=== PATIENT | male | born 1955 | race Caucasian/White ===

== ENCOUNTER → 2019-07-05 08:32 | Outpatient (BNVA) | payer BC, SELFPAY | PROVIDERS: Family Provider Nurse Practitioner Family; PCP Nurse Practitioner Family; Visit Provider Urology | DX: Z12.5 Encounter for screening for malignant neoplasm of prostate (principal); N39.9 Disorder of urinary system, unspecified | CPT/HCPCS: 81001 ==

== ENCOUNTER → 2019-10-20 11:55 | Outpatient (BNVA) | payer BC, SELFPAY | PROVIDERS: Family Provider Nurse Practitioner Family; PCP Nurse Practitioner Family; Visit Provider Nurse Practitioner Family | DX: E78.5 Hyperlipidemia, unspecified (principal); I10 Essential (primary) hypertension | CPT/HCPCS: 80053; 80061; 85025 ==

== ENCOUNTER → 2020-03-14 09:45 | Outpatient (BNVA) | payer BC, SELFPAY | PROVIDERS: Family Provider Nurse Practitioner Family; PCP Nurse Practitioner Family; Visit Provider Urology | DX: R97.20 Elevated prostate specific antigen [PSA] (principal) | CPT/HCPCS: 84153 ==

== ENCOUNTER → 2020-05-08 11:36 | Outpatient (BNVA) | payer BC, SELFPAY | PROVIDERS: Family Provider Nurse Practitioner Family; PCP Nurse Practitioner Family; Visit Provider Nurse Practitioner Family | DX: J30.2 Other seasonal allergic rhinitis (principal); E78.5 Hyperlipidemia, unspecified; H61.23 Impacted cerumen, bilateral; M25.561 Pain in right knee; G89.29 Other chronic pain; I10 Essential (primary) hypertension; H93.13 Tinnitus, bilateral | CPT/HCPCS: 80053; 80061; 85025 ==

== ENCOUNTER → 2020-09-11 10:39 | Outpatient (BNVA) | payer BC, SELFPAY | PROVIDERS: Family Provider Nurse Practitioner Family; PCP Nurse Practitioner Family; Visit Provider Urology | DX: R97.20 Elevated prostate specific antigen [PSA] (principal); N39.9 Disorder of urinary system, unspecified | CPT/HCPCS: 81003; G0103 ==

== ENCOUNTER → 2020-10-30 11:09 | Outpatient (BNVA) | payer BC, SELFPAY | PROVIDERS: Family Provider Nurse Practitioner Family; PCP Nurse Practitioner Family; Visit Provider Nurse Practitioner Family | DX: E78.5 Hyperlipidemia, unspecified (principal); I10 Essential (primary) hypertension | CPT/HCPCS: 80053; 80061; 84443; 85025 ==

== ENCOUNTER → 2021-03-14 10:07 | Outpatient (BNVA) | payer BC, SELFPAY | PROVIDERS: Family Provider Nurse Practitioner Family; PCP Nurse Practitioner Family; Visit Provider Urology | DX: R97.20 Elevated prostate specific antigen [PSA] (principal) | CPT/HCPCS: 81003; 84153 ==

== ENCOUNTER → 2021-05-07 09:38 | Outpatient (BNVA) | payer MEDICARE, OTHER, SELFPAY | PROVIDERS: Family Provider Nurse Practitioner Family; PCP Nurse Practitioner Family; Visit Provider Nurse Practitioner Family | DX: E78.5 Hyperlipidemia, unspecified (principal); I10 Essential (primary) hypertension; M25.561 Pain in right knee; M25.562 Pain in left knee; R97.20 Elevated prostate specific antigen [PSA]; G89.29 Other chronic pain; J30.2 Other seasonal allergic rhinitis; M17.12 Unilateral primary osteoarthritis, left knee | CPT/HCPCS: 73562; 80053; 80061; 84443; 85025 ==

== ENCOUNTER → 2021-06-26 14:07 | Outpatient (BNVA) | payer MEDICARE, OTHER, SELFPAY | PROVIDERS: Family Provider Nurse Practitioner Family; PCP Nurse Practitioner Family; Referring Provider Nurse Practitioner Family; Visit Provider Orthopaedic Surgery | DX: M17.0 Bilateral primary osteoarthritis of knee (principal) | CPT/HCPCS: 73560; 73565 ==

== ENCOUNTER → 2021-09-11 11:09 | Outpatient (BNVA) | payer MEDICARE, OTHER, SELFPAY | PROVIDERS: Family Provider Nurse Practitioner Family; PCP Nurse Practitioner Family; Visit Provider Orthopaedic Surgery | DX: M17.0 Bilateral primary osteoarthritis of knee (principal) | CPT/HCPCS: 99213; 99214 ==

== ENCOUNTER → 2021-10-19 10:47 | Day surgery (SDC) | payer MEDICARE, OTHER, SELFPAY | PROVIDERS: PCP Nurse Practitioner Family; Visit Provider Orthopaedic Surgery | DX: Z01.818 Encounter for other preprocedural examination (principal) | CPT/HCPCS: 93005 ==

== ENCOUNTER 2021-10-29 08:49 | Observation (INO) | payer MEDICARE, OTHER, SELFPAY ==
[2021-10-19 10:28] VITALS: BMI 38.7
--- NOTE | 2021-10-19 10:41 | ECG_ITS ---
[facility] Test Date: 2021-10-19 Pat Name: Armaan Camacho Department: Room: Gender: Male Medical Psychotherapist: : 1955 Requested By: Naye Desai Order Number: [id number] Pipe MD: Brock Quiroz M.D. Measurements Intervals [place] Rate: 66 P: 34 SD: 185 QRS: 10 QRSD: 106 T: 44 QT: 369 QTc: 388 Interpretive Statements SINUS RHYTHM POSSIBLE INFERIOR MYOCARDIAL INFARCTION , PROBABLY OLD [30 ms Q WAVE IN II/aVF] No previous ECG available for comparison Electronically Signed On 10-20-2021 12:32:30 CDT by Brock Quiroz M.D. [email or web address]
[2021-10-19 11:02] LABS: Basophils # 0.1 10^3/uL (0.0-0.1); Basophils % 1.1 %; Eosinophils # 0.5 10^3/uL (0.0-0.8); Eosinophils % 9.7 %; Hematocrit 44.8 % (42.0-52.0); Hemoglobin 14.6 g/dL (11.7-16.6); Lymphocytes # 0.9 10^3/uL (0.8-4.8); Lymphocytes % 17.2 %; Mean Corpuscular HGB Conc 32.6 g/dL (30.0-36.0); Mean Corpuscular Hemoglobin 29.1 pg (28.0-34.0); Mean Corpuscular Volume 89.4 fl (80-94); Mean Platelet Volume 10.3 fL (7.4-10.4); Monocytes # 0.6 10^3/uL (0.2-0.9); Monocytes % 10.5 %; Neutrophils # 3.25 10^3/uL (1.8-7.7); Neutrophils % 60.9 %; Nucleated Red Blood Cells % 0 %; Platelet Count 231 10^3/cmm (130-400); Red Blood Count 5.01 10^6/uL (4.1-5.3); Red Cell Distribution Width 13.2 % (12.1-15.1); White Blood Count 5.3 10^3/uL (4.0-10.0)
--- NOTE | 2021-10-19 11:02 | P.ANESASSM_ITS ---
Pre-Anesthetic Assessment Height/Weight: Height 1.83 m Weight 129.727 kg Preop Diagnosis: Osteoarthritis left knee Operation Date: 10/29/21 07:00 Proposed Procedures p left total knee arthroplasty/ 22473/M17.0(Left) - Miguel Michelle MD Familial anesthetic complications: None Social No alcohol and No tobacco Exam alert, oriented x 3, clear to auscultation bilaterally and regular rate & rhythm Airway Mallampati: Class III Dentition: other (missing) Pulmonary None reported CV/HEM Hypertension None reported Hepatic None reported GI None reported Metabolic None reported Musc/skel None reported Neuropsych None reported Anesthetic Plan ASA status: 2 Anesthesia: Regional (specify below) (spinal + adductor) Risk of > 500 ml blood loss (7ml/kg in children): No Medications/Allergies Home Medications Medication Instructions Recorded Confirmed Last Taken Type ascorbic acid (vitamin C) 1,000 mg 1 gm PO DAILY tab 07/05/19 10/19/21 Unknown History tablet aspirin 325 mg tablet 325 mg PO DAILY 07/05/19 10/19/21 Unknown History lemon grass 1 tab PO QPM 07/05/19 10/19/21 Unknown History zinc knqojvq-bpncki-qle 1 cap PO QPM cap 07/05/19 10/19/21 Unknown History iwzewllw-qwkjeod-kkw afr 15 mg-2 mg-160 mg cap atenolol 50 mg tablet 50 mg PO QPM 10/19/21 10/19/21 Unknown History atorvastatin 80 mg tablet 80 mg PO QPM 10/19/21 10/19/21 Unknown History fexofenadine 180 mg tablet 180 mg PO QPM 10/19/21 10/19/21 Unknown History (Micheline Allergy) fluticasone propionate 50 2 spray INTRANASAL QPM 10/19/21 10/19/21 Unknown History mcg/actuation nasal spray,suspension (Flonase Allergy Relief) Allergies Allergy/AdvReac Type Severity Reaction Status Date / Time No Known Allergies Allergy Verified 09/11/21 11:12 [facility] Anesthesia Medical History Elevated PSA Surgical History History of tonsillectomy and adenoidectomy [place] teeth extracted Family History Father , AT AGE 65 [place] No problems noted. Mother , AT AGE 79 COPD No problems noted. 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
[2021-10-19 11:14] LABS: Anion Gap 14.7 (5-19); Blood Urea Nitrogen 17 mg/dL (8-23); Calcium 9.7 mg/dL (8.5-10.5); Carbon Dioxide 26 mmol/L (22-29); Chloride 104 mmol/L (98-107); Glucose 151 mg/dL (65-115); Osmolality Calculated 294 mOsm/kg (285-295); Potassium 4.7 mmol/L (3.5-5.1); Sodium 140 mmol/L (136-145)
[2021-10-29] VITALS (19 sets, daily range): BP systolic 95–162; BP diastolic 53–95; PULSE 54–78; RESP 5–22; TEMP 36.3–36.7; O2SAT 54–97
--- NOTE | 2021-10-29 06:05 | SUR.PREOP ---
0600 red area noted to mid back from tick bite over the weekend
[2021-10-29] MEDS: sodium chloride 0.9% 1,000 ML 30 ML IV (06:20)
[2021-10-29] MEDS: CELEcoxib 200 mg Capsule 400 MG PO (06:26)
[2021-10-29] MEDS: gabapentin 300 mg Capsule PO ×2 (06:27→17:23)
[2021-10-29] MEDS: acetaminophen 500 mg Tablet 1000 MG PO ×3 (06:27→21:33)
[2021-10-29] MEDS: oxyCODONE 20 mg ER (12 HR) Tablet PO (06:28)
--- NOTE | 2021-10-29 06:40 | P.ANESUD_ITS ---
Pre-Anesthetic Update Pre-Anesthetic Assessment: Date of Surgery/Procedure: 10/29/21 Preop Kayla gnosis: Osteoarthritis left knee Proposed Procedure: Operation Date: 10/29/21 07:00 Proposed Procedures p left total knee arthroplasty/ 84720/M17.0(Left) - Miguel Michelle MD Any changes to Pre-Anesthetic Assessment?: No Last Intake: Intake Last Liquid Date 10/28/21 Last Liquid Time 22:00 Last Solid Date 10/28/21 Last Solid Time 22:00 Vitals: Temperature 98.1 F 10/29/21 05:54 Temperature Source Temporal Artery S can 10/29/21 05:54 Pulse Rate 66 10/29/21 05:54 Respiratory Rate 16 10/29/21 06:28 Respiratory Effort 10/29/21 06:28 Respiratory Depth Normal 10/29/21 06:28 Respiratory Patter n 10/29/21 06:28 Blood Pressure 162/95 10/29/21 05:54 Blood Pressure Rosie n 117 10/29/21 05:54 Pulse Oximetry 95 10/29/21 06:28 Oxygen Delivery Me thod 10/29/21 05:54 Exam: Pre-Anes Outpt Exam: alert, oriented x 3, clear to auscultation bilaterally and regular rate & rhythm Cardiac Studies: No Data to Display
--- NOTE | 2021-10-29 06:41 | ANES.PREANE2 ---
Pre-Anesthetic Assessment Height/Weight: Height 1.83 m Weight 129.727 kg Temp Pulse Resp BP Pulse Ox 98.1 F 66 16 162/95 95 10/29/21 05:54 10/29/21 05:54 10/29/21 06:28 10/29/21 05:54 10/29/21 06:28 Preop Diagnosis: Osteoarthritis left knee Operation Date: 10/29/21 07:00 Proposed Procedures p left total knee arthroplasty/ 90824/M17.0(Left) - Miguel Michelle MD Last intake: Intake Last Liquid Date 10/28/21 Last Liquid Time 22:00 Last Solid Date 10/28/21 Last Solid Time 22:00 Medications/Allergies Home Medications Medication Instructions Recorded Confirmed Last Taken Type ascorbic acid (vitamin C) 1,000 mg 1 gm PO DAILY tab 07/05/19 10/29/21 10/28/21 History tablet aspirin 325 mg tablet 325 mg PO DAILY 07/05/19 10/29/21 10/27/21 History lemon grass 1 tab PO QPM 07/05/19 10/29/21 10/28/21 History zinc fxnfeex-kezmil-abx 1 cap PO QPM cap 07/05/19 10/29/21 10/28/21 History jmtjthux-eidccog-yxx afr 15 mg-2 mg-160 mg cap atenolol 50 mg tablet 50 mg PO QPM 10/19/21 10/29/21 10/28/21 22:00 History atorvastatin 80 mg tablet 80 mg PO QPM 10/19/21 10/29/21 10/28/21 History fexofenadine 180 mg tablet 180 mg PO QPM 10/19/21 10/29/21 10/28/21 History (Micheline Allergy) fluticasone propionate 50 2 spray INTRANASAL QPM 10/19/21 10/29/21 10/28/21 History mcg/actuation nasal spray,suspension (Flonase Allergy Relief) Allergies Allergy/AdvReac Type Severity Reaction Status Date / Time No Known Allergies Allergy Verified 10/29/21 06:02 Current Medications Generic Name Dose Route Start Last Admin Trade Name Freq PRN Reason Stop Dose Admin Sodium Chloride 1,000 mls @ 30 mls/hr 10/29/21 06:00 10/29/21 06:20 Sodium Chloride 0.9% IV 10/30/21 05:59 30 mls/hr .Q24H MAITE Administration PFSH Anesthesia Medical History Elevated PSA Surgical History History of tonsillectomy and adenoidectomy [place] teeth extracted Family History Father , AT AGE 65 [place] No problems noted. Mother , AT AGE 79 COPD No problems noted. 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
--- NOTE | 2021-10-29 07:06 | P.HP_ITS ---
Same Day Surgery H&P Indication for Procedure/HPI DATE OF PROCEDURE: October 29, 2021 CHIEF COMPLAINT/INDICATIONFOR SURGICAL PROCEDURE: Osteoarthritis left knee for total knee arthroplasty PREOP DIAGNOSIS: Osteoarthritis left knee PLANNED PROCEDURE: Operation Date: 10/29/21 07:00 Proposed Procedures p left total knee arthroplasty/ 58803/M17.0(Left) - Miguel Michelle MD Doug is a 66-year-old male with osteoarthritis of both knees more symptomatic on the left. He has failed anti-inflammatories Medrol Dosepak and steroid injec tions with persistent activity related pain. He is here today for a left total knee arthroplasty Medications/Allergies* Home Medications Medication Instructions Recorded Confirmed Type ascorbic acid (vitamin C) 1,000 mg 1 gm PO DAILY tab 07/05/19 10/29/21 History tablet aspirin 325 mg tablet 325 mg PO DAILY 07/05/19 10/29/21 History lemon grass 1 tab PO QPM 07/05/19 10/29/21 History zinc qrvgzfr-jlbwwg-jux 1 cap PO QPM cap 07/05/19 10/29/21 History oaxmwsms-kmcpunj-lmc afr 15 mg-2 mg-160 mg cap atenolol 50 mg tablet 50 mg PO QPM 10/19/21 10/29/21 History atorvastatin 80 mg tablet 80 mg PO QPM 10/19/21 10/29/21 History fexofenadine 180 mg tablet 180 mg PO QPM 10/19/21 10/29/21 History (Micheline Allergy) fluticasone propionate 50 2 spray INTRANASAL QPM 10/19/21 10/29/21 History mcg/actuation nasal spray,suspension (Flonase Allergy Relief) Allergies/Adverse Reactions Allergy/AdvReac Type Severity Reaction Status Date / Time No Known Allergies Allergy Verified 10/29/21 06:02 Current Medications: Generic Name Dose Route Start Last Admin Trade Name Freq PRN Reason Stop Dose Admin Sodium Chloride 1,000 mls @ 30 mls/hr 10/29/21 06:00 10/29/21 06:20 Sodium Chloride 0.9% IV 10/30/21 05:59 30 mls/hr .Q24H MAITE Administration Pertinent History/Comorbid Conditions* Medical History (Updated 06/26/21 @ 14:40 by Miguel Michelle MD) Elevated PSA Surgical History (Updated 10/20/19 @ 21:17 by HANNY Steven) History of tonsillectomy and adenoidectomy [place] teeth extracted Family History Father, AT AGE 65 [place] Mother, AT AGE 79 COPD Social History Smoking and tobacco status: never smoked Second hand smoke exposure: No Alcohol intake: never Adopted: No Caregiver/support person: Yes Lives independently: Yes Household members: spouse Marital status: Current occupational status: retired 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
--- NOTE | 2021-10-29 07:09 | ANES.PROC ---
Anesthesia Procedures Procedure/Date: 10/29/21 Nerve Block ^: Nerve Block 1: Main Anesthesia: spinal anesthesia block Time Out Performed: Yes Consent: requested by attending/covering physician, from patient, risks and benefits reviewed and patient agrees to proceed Nerve block location: adductor canal Anesthesia monitors applied: pulse oximetry, EKG, BP cuff and oxygen Nerve block position: supine Anesthetic Used: ropivicaine 0.5% Amount of anesthesia used (mL): 15 Ultrasound used to: recognize landmarks and visualize and ID femerol nerve Nerve Stimulator Used?: No Interscalene/Femoral BLK: 4 stimuplex 21 g needle used for position and inplane approach, visualize local anesthetic spread and no vascular puncture identified Injection: neg aspiration of heme Patient Tolerated Procedure: well Additional Comments: After time out sterile prep, using sterile technique, and using real time US guidance for target selection needle was inserted with real time visualization of needle entry and real time visualization of needle advancement toward intended target. Negative aspiration. LA injected incrementally with negative aspiration every 5 cc and real time US visualization of LA spread throughout procedure. Tolerated well. Image(s) saved.
[2021-10-29] MEDS: tranexamic acid 1,000 mg/10mL SDV 1000 MG IV (07:25)
[2021-10-29] MEDS: tranexamic acid 1,000 mg/10mL SDV 1000 MG XX (07:50)
[2021-10-29] MEDS: ketorolac 30 mg/mL INJ XX (07:52)
[2021-10-29] MEDS: tobramycin 40 mg/mL SDV 2mL 160 MG XX (07:52)
[2021-10-29] MEDS: EPINEPHrine 1 mg/mL INJ XX (07:52)
--- NOTE | 2021-10-29 08:53 | P.OP_ITS ---
Operative Report Date of procedure: October 29, 2021 Pre-op diagnosis: Preop Diagnosis Osteoarthritis left knee Post-op diagnosis: same Post-op diagnosis: Same Post-op findings: Same Procedure done: Right total knee arthroplasty Implants: [place] total knee arthroplasty components were used includin) Size 6triathalon cruciate retaining femoral component 2) Size 7 Tritanium tibial component 3) 35 mm /10 mm thickness Tritanium asymetric patella 4) Size 7/9 mm thickness CR tibial bearing insert Pathology: none sent Surgeon: Miguel Michelle Anesthesia: Nerve Block (Spinal, adductor canal block) Estimated blood loss: 200 Findings: Patient had eburnated bone over the medial femoral condyle medial tibial plateau patella and trochlea Condition: stable Disposition: PACU Procedure: The patient was taken to the operating room. Patient was given 1 g of tranexamic acid . The above anesthesia provided by the anesthesia service. A timeout was performed. The patient was prepped and draped in the usual fashion with the lower extremity exposed. A anterior incision was made, midline, from a point proximal to the patella to the distal tibial tubercle. The knee was entered through a medial parapatellar approach. The patella could be displaced laterally and the knee flexed. The patellar fat pad was resected to provide better visibility. Retractors were placed medially and laterally adjacent to the tibial plateau. The femoral canal was drilled in line with the longitudinal axis of the femur. Intramedullary femoral guide for used to make a distal femoral cut in 5 degrees of valgus, resecting 8 mm from the more prominent condyle. Next the extra medullary tibial guide was placed in alignment with the longitudinal axis of the tibia. The cutting guides were set to remove just over 9 mm from the high tibial plateau. The proximal tibia was then cut. The femoral measuring guide was then placed over the distal femur. Rotation was verified checking the relationship of the guide to the condyle and the trochlear groove. The femur was measured and cut for the desired femoral component. The desired tibial baseplate was then chosen. A trial reduction with the femur tibial baseplate and polyethylene was done, assuring that the knee was stable throughout full motion. Ligament balancing involved nothing more than a release of the deep medial collateral ligament.The tibia was prepared for the tibial baseplate. Patellar thickness was then measured. The patella was cut removing articular cartilage and prepared for appropriate size patellar button. surfaces were cleaned with a gentamicin solution. The femur tibia and patella were then press- fit into place. The posterior capsule and collateral ligaments were then injected with a solution of 100 mL of 0.2% ropivacaine, 1 mL of a 1:1000 epinephrine solution, 30 mg of Toradol, and 1 g of tranexamic acid. Final polyethylene component was then snapped into place into the tibia. The extensor retinaculum was closed with a running 1 Stratafix interrupted 1 Ethibond. The subcutaneous tissues were closed with 2-0 Vicryl and the skin was closed with a running 4-0 Stratafix. The wound was covered with a Dermabond Prineo dressing. It was covered with 4xrs and a compressive Tubigauze was applied. The patient was taken to recovery room in stable condition.
--- NOTE | 2021-10-29 08:53 | XR_ITS ---
WS: [id number] LEFT KNEE 2 VIEWS AP and cross table lateral imaging is submitted. HISTORY: Left Total knee arthroplasty. COMPARISON: 06/26/2021 Total knee replacement prosthetic devices are in good position and alignment. Normal position of the patella. Posterior patellar prosthetic device. Numerous postsurgical sutures are noted over the anter ior knee and there are normal postoperative changes in the soft tissues consistent with air, blood an d edema. No complications are evident. XR/XR knee LT 1-2V 25803 IMPRESSION: Satisfactory appearance of the recent LEFT knee arthroplasty.
--- NOTE | 2021-10-29 09:20 | SUR.PHASEI ---
0907 PT TO PACU 5 PT AWAKE ALERT TALKATIVE, WITH GOOD RESP NOTED IV TO LT FOREARM PATENT WITH NS 1000ML AT KVO RATE PER GRAVITY PT ID BAND TO RT WRIST PT ID'D WITH 2 IDENTIFIERS. LT KNEE DRESSING D/I STRONG DISTAL PULSE NOTED. FIRST ICE TO LT KNEE MONITOR SR WITH NO ECTOPY NOTED. SPINAL ANESTHESIA AND PT HAS NORMAL SENSATION TO T -9 AREA HOB AT 30 DEGREES
--- NOTE | 2021-10-29 09:45 | SUR.PHASEI ---
0940 PT AWAKE ALERT HOB AT 40 DEGREES, VSS MONITOR SR, DRESSING D/I.FIRST ICE IN PLACE, PT FAMILY UPDATED AND PT TO OB PER CART.
[2021-10-29] MEDS: aspirin 325 mg Tablet PO (10:16)
[2021-10-29] MEDS: oxyCODONE 5 mg IR Tab/Cap PO (11:08)
--- NOTE | 2021-10-29 11:15 | PC.NURSE ---
PT called LD floor to ask nurse to pre medicate patient prior to therapy. CARLIE RN
--- NOTE | 2021-10-29 11:24 | PC.NURSE ---
PT notified of patient taking PO pain medication at this time. CARLIE GEORGE
[2021-10-29] MEDS: ondansetron 2 mg/ML SDV 2 mL 4 MG IVP (12:00)
--- NOTE | 2021-10-29 12:16 | PC.NURSE ---
Patient up in chair for lunch. Patient voiced no needs at this time. CARLIE RN
--- NOTE | 2021-10-29 13:53 | ANE.PACU2 ---
Inpatient post-anesthesia follow up: Airway intact: Yes Vital signs: Temperature 97.6 F Pulse Rate 63 Respiratory Rate 16 Blood Pressure 119/72 Pulse Oximetry 95 Oxygen Delivery Me thod Room Air Oxygen Flow Rate 3 Fraction of Inspir ed Oxygen Hydration adequate: Yes Nausea and vomiting: No Pain level: 1 Mental status: Baseline
--- NOTE | 2021-10-29 14:23 | PC.NURSE ---
Patient back to bed with walker and standby assist. Lower level of bed positioning locked out by RN. No needs at this time. CARLIE RN
--- NOTE | 2021-10-29 15:00 | PC.NURSE ---
Patient educated on IS use. Patient verbalized understanding. AR RN
[2021-10-29] MEDS: ceFAZolin 2,000 MG in sodium chloride 0.9% (plus) 50 ML 100 MG IV ×2 (15:08→22:54)
--- NOTE | 2021-10-29 16:53 | PC.NURSE ---
Dr. Michelle contacted about patient having difficulty voiding. aware of patient up to bathroom and passing minimal urine. Orders received for bladder scan. CARLIE GEORGE
[2021-10-29] MEDS: fluticasone nasal spray 16gm Btl 2 SPRAY INTRANASAL (17:23)
[2021-10-29] MEDS: atorvastatin 40 mg Tablet 80 MG PO (17:23)
--- NOTE | 2021-10-29 17:30 | PC.NURSE ---
Dr. Michelle notified of bladder scan amount. No further orders at this time. CARLIE GEORGE
[2021-10-29] MEDS: atenolol 50 mg Tablet PO (18:02)
--- NOTE | 2021-10-29 19:00 | PC.NURSE ---
ice pack changed
[2021-10-29] MEDS: sodium chloride 0.9% 1,000 ML 100 ML IV (19:13)
--- NOTE | 2021-10-29 21:00 | PC.NURSE ---
ice pack changed
[2021-10-29] MEDS: CELEcoxib 200 mg Capsule PO (21:33)
--- NOTE | 2021-10-29 23:00 | PC.NURSE ---
ice pack changed
--- NOTE | 2021-10-30 02:00 | PC.NURSE ---
ice pack changed
--- NOTE | 2021-10-30 04:10 | PC.NURSE ---
ice pack changed
[2021-10-30 04:22] VITALS: BP 133/79; PULSE 62; RESP 14; TEMP 36.8; O2SAT 95
[2021-10-30 04:27] LABS: Hemoglobin 11.6 g/dL (11.7-16.6)
[2021-10-30] MEDS: acetaminophen 500 mg Tablet 1000 MG PO (05:59)
--- NOTE | 2021-10-30 06:00 | PC.NURSE ---
ice pack changed
[2021-10-30] MEDS: ceFAZolin 2,000 MG in sodium chloride 0.9% (plus) 50 ML 100 MG IV (06:30)
[2021-10-30] MEDS: CELEcoxib 200 mg Capsule PO (08:11)
[2021-10-30 08:12] VITALS: RESP 16
[2021-10-30] MEDS: oxyCODONE 5 mg IR Tab/Cap PO (08:12)
[2021-10-30] MEDS: gabapentin 300 mg Capsule PO (08:12)
[2021-10-30] MEDS: aspirin 325 mg Tablet PO (08:15)
--- NOTE | 2021-10-30 10:53 | P.DS_ITS ---
Discharge Providers Date of Admission: 10/29/21 08:49 Date of Discharge: October 30, 2021 Attending Provider at Admission: Miguel Michelle MD Attending Provider at Discharge: Miguel Michelle MD Primary Care Provider: HANNY Steven Diagnoses at Discharge Discharge Diagnosis (1) Osteoarthritis of left knee: Status: Resolved (2) Status post left knee replacement: Status: Acute Hospital Course Hospital Course The patient tolerated surgery well. They remained hemodynamically stable. They was begun on aspirin and foot pumps for DVT prophylaxis. The patient was mobilized with therapy beginning the day of surgery and by the first postoperative day independent with the walker. As the pain was adequately controlled and they were fully mobile they were discharged home. Physical Exam Narrative: On the day of discharge the knee incision was clean. They had no drainage. There is minimal swelling in the thigh and knee and the calf. No distal neurovascular deficits were noted Discharge Data Studies Completed and Pending Completed Studies During Hospitalization Category Date Time Status XR knee LT 1-2V 47576 Routine Exams 10/29/21 08:53 Completed Radiology Impressions Knee X-Ray 10/29/21 08:53 IMPRESSION: Satisfactory appearance of the recent LEFT knee arthroplasty. Laboratory Results WBC 5.3 10^3/uL (4.0-10.0) 10/19/21 10:48 RBC 5.01 10^6/uL (4.1-5.3) 10/19/21 10:48 Hgb 11.6 g/dL (11.7-16.6) L 10/30/21 04:02 Hct 44.8 % (42.0-52.0) 10/19/21 10:48 MCV 89.4 fl (80-94) 10/19/21 10:48 MCH 29.1 pg (28.0-34.0) 10/19/21 10:48 MCHC 32.6 g/dL (30.0-36.0) 10/19/21 10:48 RDW 13.2 % (12.1-15.1) 10/19/21 10:48 Plt Count 231 10^3/cmm (130-400) 10/19/21 10:48 MPV 10.3 fL (7.4-10.4) 10/19/21 10:48 Neut % (Auto) 60.9 % 10/19/21 10:48 Lymph % (Auto) 17.2 % 10/19/21 10:48 Divide % (Auto) 10.5 % 10/19/21 10:48 Eos % (Auto) 9.7 % 10/19/21 10:48 Baso % (Auto) 1.1 % 10/19/21 10:48 Neut # (Auto) 3.25 10^3/uL (1.8-7.7) 10/19/21 10:48 Lymph # (Auto) 0.9 10^3/uL (0.8-4.8) 10/19/21 10:48 Divide # (Auto) 0.6 10^3/uL (0.2-0.9) 10/19/21 10:48 Eos # (Auto) 0.5 10^3/uL (0.0-0.8) 10/19/21 10:48 Baso # (Auto) 0.1 10^3/uL (0.0-0.1) 10/19/21 10:48 Nucleated RBC % (auto) 0 % 10/19/21 10:48 Nucleated RBCs # 0.0 /100WBC 10/19/21 10:48 Sodium 140 mmol/L (136-145) 10/19/21 10:48 Potassium 4.7 mmol/L (3.5-5.1) 10/19/21 10:48 Chloride 104 mmol/L (98-107) 10/19/21 10:48 Carbon Dioxide 26 mmol/L (22-29) 10/19/21 10:48 Anion Gap 14.7 (5-19) 10/19/21 10:48 BUN 17 mg/dL (8-23) 10/19/21 10:48 Creatinine 0.8 mg/dL (0.7-1.2) 10/19/21 10:48 GFR Calculation 97.0 mL/min (90-130) 10/19/21 10:48 Glucose 151 mg/dL (65-115) H 10/19/21 10:48 Calculated Osmolality 294 mOsm/kg (285-295) 10/19/21 10:48 Calcium 9.7 mg/dL (8.5-10.5) 10/19/21 10:48 Vitals Last Vital Signs Temp 98.3 F 10/30/21 04:22 Pulse 62 10/30/21 04:22 Resp 16 10/30/21 08:12 BP 133/79 10/30/21 04:22 Pulse Ox 95 10/30/21 04:22 Discharge Plan Discharge Patient Disposition: Home Condition: Stable Prescriptions: New celecoxib 200 mg Capsule 200 mg PO Q12H 14 Days Qty: 28 0RF acetaminophen 500 mg Tablet 1,000 mg PO Q8H 14 Days Qty: 84 0RF gabapentin 300 mg Capsule 300 mg PO BID 7 Days Qty: 14 0RF oxycodone 5 mg Tablet 5 mg PO Q4H PRN (Reason: Moderate Pain) 7 Days Qty: 30 0RF Continued lemon grass 1 tab PO QPM 0RF zinc yso-xwyylw-yfr palm-gnsg 15-2-160 mg capsule 1 cap PO QPM 0RF ascorbic acid (vitamin C) 1,000 mg tablet 1 gm PO DAILY 0RF aspirin 325 mg tablet 325 mg PO DAILY 0RF atorvastatin 80 mg tablet 80 mg PO QPM 0RF fexofenadine [Micheline Allergy] 180 mg tablet 180 mg PO QPM 0RF fluticasone propionate [Flonase Allergy Relief] 50 mcg/actuation spray,suspension 2 spray INTRANASAL QPM 0RF Rx Instructions: administer into each nostril atenolol 50 mg tablet 50 mg PO QPM 0RF Discharge Orders: Discharge Order (Routine); Ordered 10/30/21 Ordered By: Miguel Michelle Referrals: [facility] ([facility]) [Outside] Dez Kumar FNP [Physician Thin Film Technician] - 11/02/21 8:30 am Discharge Diet: Advance as tolerated Discharge Activity: Limit activity as instructed Patient Instructions: Gabapentin (By mouth), Oxycodone, Rapid Release (By mouth) (ETH-Oxydose, Oxy IR,..., Celecoxib (By mouth), Precautions after Total Joint Replacement Surgery (GEN), Knee Replacement (GEN), Opioid Safety, Post Anesthesia Care Activity Restrictions/Additional Instructions: Okay to shower Keep Tubigauze sleeve in place for swelling. Okay to remove for hygiene. Apply FirstIce up to 20 min/hr for pain and swelling Take Celebrex twice a day for the next 15 days for pain , discontinue other anti-inflammatories Take Neurontin twice a day for 7 days. Take Tylenol 500mg (2 tabs) as needed 3 times a day for mild pain take oxycodone for breakthrough pain. Exercises per physical therapy. May weight-bear as tolerated on total knee arthroplasty IF HAVE ANY PROBLEMS OR QUESTIONS CALL [facility] AND ASK TO HAVE DR. ELISHA PLASCENCIA. Discharge Attestations Time Spent in Discharge Care*: other Quality Metrics Clinical Quality Measures [ No reported AMI, CVA or VTE this stay] Coding Level of Care Code Acute Chg FW CA note Diagnoses Osteoarthritis of left knee M17.12 Status post left knee replacement Z96.652
[2021-10-30 11:38] VITALS: BP 131/74; PULSE 67; RESP 16; TEMP 36.9; O2SAT 95
== END 2021-10-30 12:00 | disposition home or self-care (01) ==
LOC: OBGYN 08:49
PROVIDERS: Anesthesiology; Admitting Provider Orthopaedic Surgery; PCP Nurse Practitioner Family; Visit Provider Orthopaedic Surgery
PROC: (CPT 27447; principal; 2021-10-29 07:00)
DX: M17.12 Unilateral primary osteoarthritis, left knee (principal); I10 Essential (primary) hypertension; Z79.82 Long term (current) use of aspirin
CPT/HCPCS: 27447; 36415; 73560; 80048; 85018; 85025; 97110; 97161; 97165; 97530; C1776; G0378; J0171; J0690; J1885; J2370; J2405; J2704; J2795; J3260; J7030

== ENCOUNTER → 2021-10-31 12:28 | Outpatient (BNVA) | payer MEDICARE, OTHER, SELFPAY | PROVIDERS: PCP Nurse Practitioner Family; Visit Provider Family Medicine | DX: R35.0 Frequency of micturition (principal) | CPT/HCPCS: 81000 ==

== ENCOUNTER → 2021-11-02 08:20 | Outpatient (BNVA) | payer MEDICARE, OTHER, SELFPAY | PROVIDERS: PCP Nurse Practitioner Family; Visit Provider Nurse Practitioner Family | DX: Z96.652 Presence of left artificial knee joint (principal) | CPT/HCPCS: 99024 ==

== ENCOUNTER 2021-11-13 09:00 | Outpatient (RCR) | payer MEDICARE, OTHER, SELFPAY | END 2021-11-18 23:59 | disposition home or self-care (01) | LOC: TPT 09:00 | PROVIDERS: PCP Nurse Practitioner Family; Referring Provider Orthopaedic Surgery; Visit Provider Orthopaedic Surgery | DX: Z47.1 Aftercare following joint replacement surgery (principal); Z96.652 Presence of left artificial knee joint | CPT/HCPCS: 97032; 97110; 97162 ==

== ENCOUNTER 2021-11-19 06:00 | Outpatient (RCR) | payer MEDICARE, OTHER, SELFPAY | END 2021-12-19 23:59 | disposition home or self-care (01) | LOC: TPT 06:00 | PROVIDERS: PCP Nurse Practitioner Family; Referring Provider Orthopaedic Surgery; Visit Provider Orthopaedic Surgery | DX: Z96.652 Presence of left artificial knee joint (principal) | CPT/HCPCS: 97032; 97110; 97140 ==

== ENCOUNTER → 2021-11-29 09:05 | Outpatient (BNVA) | payer MEDICARE, OTHER, SELFPAY | PROVIDERS: PCP Nurse Practitioner Family; Visit Provider Nurse Practitioner Family | DX: Z96.652 Presence of left artificial knee joint (principal) | CPT/HCPCS: 73560; 73565; 99024 ==

== ENCOUNTER 2021-12-20 06:00 | Outpatient (RCR) | payer MEDICARE, OTHER, SELFPAY | END 2022-01-18 23:59 | disposition home or self-care (01) | LOC: TPT 06:00 | PROVIDERS: PCP Nurse Practitioner Family; Visit Provider Orthopaedic Surgery | DX: Z96.652 Presence of left artificial knee joint (principal) | CPT/HCPCS: 97110; 97140 ==

== ENCOUNTER 2022-01-03 15:35 | Outpatient (CLI) | payer MEDICARE, OTHER, SELFPAY | END 2022-01-03 15:36 | disposition home or self-care (01) | LOC: LAB 15:40 | PROVIDERS: PCP Nurse Practitioner Family; Visit Provider Urology | DX: R97.20 Elevated prostate specific antigen [PSA] (principal) | CPT/HCPCS: 36415; 84153 ==

== ENCOUNTER → 2022-01-07 14:59 | Outpatient (BNVA) | payer MEDICARE, OTHER, SELFPAY | PROVIDERS: PCP Nurse Practitioner Family; Visit Provider Urology | DX: R97.20 Elevated prostate specific antigen [PSA] (principal); R33.8 Other retention of urine | CPT/HCPCS: 51798; 99213 ==

== ENCOUNTER → 2022-01-17 12:42 | Outpatient (BNVA) | payer MEDICARE, OTHER, SELFPAY | PROVIDERS: PCP Nurse Practitioner Family; Visit Provider Urology | DX: R97.20 Elevated prostate specific antigen [PSA] (principal); R33.8 Other retention of urine | CPT/HCPCS: 81003 ==

== ENCOUNTER → 2022-03-06 10:37 | Outpatient (BNVA) | payer MEDICARE, OTHER, SELFPAY | PROVIDERS: PCP Nurse Practitioner Family; Visit Provider Orthopaedic Surgery | DX: Z96.652 Presence of left artificial knee joint (principal) | CPT/HCPCS: 99212 ==

== ENCOUNTER → 2022-04-19 10:02 | Outpatient (BNVA) | payer MEDICARE, OTHER, SELFPAY | PROVIDERS: PCP Nurse Practitioner Family; Visit Provider Nurse Practitioner Family | DX: I10 Essential (primary) hypertension (principal); R73.9 Hyperglycemia, unspecified | CPT/HCPCS: 80053; 80061; 83036; 83735; 84443; 85025 ==

== ENCOUNTER → 2022-07-08 11:14 | Outpatient (BNVA) | payer MEDICARE, OTHER, SELFPAY | PROVIDERS: PCP Nurse Practitioner Family; Visit Provider Urology | DX: R97.20 Elevated prostate specific antigen [PSA] (principal) | CPT/HCPCS: 84153 ==

== ENCOUNTER → 2022-07-11 08:31 | Outpatient (BNVA) | payer MEDICARE, OTHER, SELFPAY | PROVIDERS: PCP Nurse Practitioner Family; Visit Provider Urology | DX: R97.20 Elevated prostate specific antigen [PSA] (principal); R33.8 Other retention of urine | CPT/HCPCS: 51798; 81003; 99213 ==

== ENCOUNTER → 2022-09-23 09:25 | Outpatient (BNVA) | payer MEDICARE, OTHER, SELFPAY | PROVIDERS: PCP Nurse Practitioner Family; Visit Provider Nurse Practitioner Family | DX: E78.5 Hyperlipidemia, unspecified (principal); I10 Essential (primary) hypertension; R73.09 Other abnormal glucose | CPT/HCPCS: 80053; 80061; 83036; 84443; 85025 ==

== ENCOUNTER → 2023-04-16 08:59 | Outpatient (BNVA) | payer MEDICARE, OTHER, SELFPAY | PROVIDERS: PCP Nurse Practitioner Family; Visit Provider Nurse Practitioner Family | DX: I10 Essential (primary) hypertension (principal); E78.5 Hyperlipidemia, unspecified; E11.9 Type 2 diabetes mellitus without complications; R97.20 Elevated prostate specific antigen [PSA] | CPT/HCPCS: 80053; 80061; 83036; 84153; 85025 ==

== ENCOUNTER → 2023-06-10 11:05 | Outpatient (BNVA) | payer MEDICARE, OTHER, SELFPAY | PROVIDERS: PCP Nurse Practitioner Family; Visit Provider Student in an Organized Health Care Education/Training Program | DX: M17.11 Unilateral primary osteoarthritis, right knee | CPT/HCPCS: 73560; 73565; 99214 ==

== ENCOUNTER 2023-07-08 13:31 | Outpatient (CLI) | payer MEDICARE, OTHER, SELFPAY ==
--- NOTE | 2023-07-08 14:00 | CT_ITS ---
WS: [id number] CT RIGHT KNEE, NONCONTRAST LUCILA TECHNIQUE: Noncontrast CT of the RIGHT knee to include the RIGHT hip and ankle. CLINICAL INFORMATION: M17.11 - Unilateral primary osteoarthritis, right knee COMPARISON: None. DLP: 1001.[address] scans at [facility] use at least one of these dose optimization techniques: automated e xposure control; mA and/or kV adjustment per patient size (includes targeted exams where dose is matc hed to clinical indication); or iterative reconstruction. FINDINGS: Advanced tricompartment arthritis RIGHT knee with joint space narrowing worse in the medial joint com partment. Moderate suprapatellar effusion. Hypertrophic patella. Hypertrophic changes along the joint line. Vascular calcification. Enlarged prostate measuring 6.5 cm. Recommend correlation PSA. IMPRESSION: Images obtained for preoperative purposes.
== END 2023-07-08 13:32 | disposition home or self-care (01) ==
LOC: RAD 13:32
PROVIDERS: PCP Nurse Practitioner Family; Visit Provider Student in an Organized Health Care Education/Training Program
DX: M17.11 Unilateral primary osteoarthritis, right knee (principal)
CPT/HCPCS: 73700

== ENCOUNTER → 2023-07-10 08:39 | Outpatient (BNVA) | payer MEDICARE, OTHER, SELFPAY | PROVIDERS: PCP Nurse Practitioner Family; Visit Provider Family Medicine | DX: Z01.818 Encounter for other preprocedural examination (principal) | CPT/HCPCS: 80053; 81003; 85025 ==

== ENCOUNTER 2023-07-21 16:15 | Observation (INO) | payer MEDICARE, OTHER, SELFPAY ==
[2023-07-21] VITALS (10 sets, daily range): BP systolic 129–166; BP diastolic 64–98; PULSE 71–85; RESP 14–18; TEMP 36.4–37; O2SAT 94–96; BMI 38.4
[2023-07-21] MEDS: scopolamine 1.5 Patch 1 PATCH TRANSDERMA (12:37)
[2023-07-21] MEDS: acetaminophen 1,000 MG/100 ML PIGGYBACK 400 MG IV ×2 (12:44→17:49)
[2023-07-21] MEDS: lactated ringers 500 ML IV (12:45)
[2023-07-21] MEDS: ketorolac 30 mg/mL INJ IVP (12:45)
[2023-07-21 13:10] LABS: Basophils # 0.1 10^3/uL (0.0-0.1); Eosinophils # 0.5 10^3/uL (0.0-0.8); Eosinophils % 8.8 %; Hematocrit 43.8 % (37-53); Lymphocytes % 16.8 %; Mean Corpuscular HGB Conc 32.9 g/dL (30-55); Mean Corpuscular Hemoglobin 29.3 pg (27-33); Mean Corpuscular Volume 89.2 fl (82-101); Mean Platelet Volume 10.5 fL (7.4-10.4); Monocytes # 0.8 10^3/uL (0.2-0.9); Monocytes % 12.8 %; Neutrophils # 3.63 10^3/uL (1.8-7.7); Neutrophils % 60.4 %; Nucleated Red Blood Cells % 0 %; Platelet Count 221 10^3/cmm (157-399); Red Blood Count 4.91 10^6/uL (3.85-5.65); Red Cell Distribution Width 13.4 % (12.1-15.1); White Blood Count 6.01 10^3/uL (3.29-11.43)
--- NOTE | 2023-07-21 13:12 | ANES.PREANE2 ---
Pre-Anesthetic Assessment Height/Weight: Height 1.88 m Weight 135.624 kg Temp Pulse Resp BP Pulse Ox O2 Del Method 98.6 F 71 18 160/95 96 Room Air 07/21/23 12:27 07/21/23 12:27 07/21/23 12:27 07/21/23 12:27 07/21/23 12:27 07/21/23 12:27 Operation Date: 07/21/23 14:00 Proposed Procedures p Jesus Robot Total Knee Arthroplasty(Right) - Dejan Ramires DO Familial anesthetic complications: NOne Was Beta Irma taken within 24 hours: N/A Was Clonidine taken within 24 hours: N/A Last intake: Intake Last Liquid Date 07/21/23 Last Liquid Time 00:30 Last Solid Date 07/20/23 Last Solid Time 21:00 Social No alcohol and No tobacco Exam alert, oriented x 3, clear to auscultation bilaterally and regular rate & rhythm Airway Mallampati: Class IV Dentition: full CV/HEM Hypertension Metabolic Hyperlipidemia and Morbid Obesity Anesthetic Plan ASA status: 2 Anesthesia: Regional (specify below) Risk of > 500 ml blood loss (7ml/kg in children): No Medications/Allergies Home Medications Medication Instructions Recorded Confirmed Last Taken Type ascorbic acid (vitamin C) 1,000 mg 1 gm PO DAILY 07/05/19 07/18/23 07/19/23 History tablet aspirin 325 mg tablet 325 mg PO DAILY 07/05/19 07/18/23 07/16/23 History lemon grass 1 tab PO QPM 07/05/19 07/18/23 07/19/23 History zinc rkfvfnq-llklxf-vmd 1 cap PO QPM 07/05/19 07/18/23 07/19/23 History hohwqlcv-tfivhtg-sgy afr 15 mg-2 mg-160 mg cap fexofenadine 180 mg tablet 180 mg PO QPM 10/19/21 07/18/23 07/20/23 History (Micheline Allergy) fluticasone propionate 50 2 spray intranasal QPM 10/19/21 07/18/23 07/20/23 History mcg/actuation nasal spray,suspension (Flonase Allergy Relief) metoprolol succinate 50 mg 50 mg PO DAILY #90 tabs 04/18/23 07/18/23 07/20/23 21:00 Rx tablet,extended release 24 hr rosuvastatin 40 mg tablet 40 mg PO DAILY #90 tabs 04/18/23 07/18/23 07/20/23 Rx Allergies Allergy/AdvReac Type Severity Reaction Status Date / Time No Known Allergies Allergy Verified 07/10/23 08:43 [facility], [facility] Anesthesia Medical History Elevated PSA Surgical History S/P knee replacement left History of tonsillectomy and adenoidectomy [place] teeth extracted Family History Father , AT AGE 65 [place] No problems noted. Mother , AT AGE 79 COPD No problems noted. 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
[2023-07-21 13:26] LABS: Blood Urea Nitrogen 17 mg/dL (8-23); Calcium 9.6 mg/dL (8.5-10.5); Carbon Dioxide 26 mmol/L (22-29); Chloride 104 mmol/L (98-107); Creatinine Clr Calc Pharmacy 131.2601; Glomerular Filtration Rate 96.4 mL/min (90-130); Glucose 93 mg/dL (65-115); Osmolality Calculated 293 mOsm/kg (285-295); Sodium 141 mmol/L (136-145)
--- NOTE | 2023-07-21 13:39 | P.HP_ITS ---
Same Day Surgery H&P Indication for Procedure/HPI DATE OF PROCEDURE: July 21, 2023 CHIEF COMPLAINT/INDICATIONFOR SURGICAL PROCEDURE: Right knee degenerative joint disease PREOP DIAGNOSIS: Right knee degenerative joint disease PLANNED PROCEDURE: Operation Date: 07/21/23 14:00 Proposed Procedures p Jesus Robot Total Knee Arthroplasty(Right) - Dejan Ramires DO Medications/Allergies* Home Medications Medication Instructions Recorded Confirmed Type ascorbic acid (vitamin C) 1,000 mg 1 gm PO DAILY 07/05/19 07/18/23 History tablet aspirin 325 mg tablet 325 mg PO DAILY 07/05/19 07/18/23 History lemon grass 1 tab PO QPM 07/05/19 07/18/23 History zinc dqwhlsd-wquqfy-bsv 1 cap PO QPM 07/05/19 07/18/23 History xgngeida-uzewtnb-lxn afr 15 mg-2 mg-160 mg cap fexofenadine 180 mg tablet 180 mg PO QPM 10/19/21 07/18/23 History (Micheline Allergy) fluticasone propionate 50 2 spray intranasal QPM 10/19/21 07/18/23 History mcg/actuation nasal spray,suspension (Flonase Allergy Relief) Allergies/Adverse Reactions Allergy/AdvReac Type Severity Reaction Status Date / Time No Known Allergies Allergy Verified 07/10/23 08:43 Pertinent History/Comorbid Conditions* Medical History (Updated 10/01/22 @ 08:53 by HANNY Steven) Elevated PSA Surgical History (Updated 10/01/22 @ 09:21 by HANNY Steven) S/P knee replacement left History of tonsillectomy and adenoidectomy [place] teeth extracted Family History Father, AT AGE 65 [place] Mother, AT AGE 79 COPD Social History Smoking and tobacco/nicotine status: never used tobacco/nicotine Second hand smoke exposure: No Alcohol intake: never Substance/Drug Use: never Adopted: No Caregiver/support person: Yes Lives independently: Yes Household members: spouse Marital status: Current occupational status: retired 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 Current gender identity: Male Special olegario needs: No Agree to transfusion: Yes Pertinent Exam Findings alert, oriented x 3, operative site marked and procedure specific exam findings Please refer to last office visit on 06/10/2023 for detailed orthopedic examination: Right Knee Exam: ROM 0 to greater than 115degrees Patellar crepitus with ROM Medial joint line tenderness to palpation Lateral joint line tenderness to palpation Mild joint effusion Negative Dotty's but pain noted Negative Jovanny's 10 degrees of Varus malalignment, correctable on exam Stable Varus and Valgus stress Gross motor sensory intact Recommendations Surgery/Procedure today Other Plans: Patient understands the ins and outs of procedure the risk benefits complication alternatives of surgery and through shared decision-making elects proceed with surgical intervention of a right total knee arthroplasty Jesus robotic assisted. Patient is clear the preoperative clearance process and all questions answered at this time. Coding Level of Care Code Acute Code for [facility] [place]
[2023-07-21 13:55] LABS: Anion Gap 15.5 (5-19); Potassium 4.5 mmol/L (3.5-5.1)
[2023-07-21] MEDS: ceFAZolin 2,000 MG in sodium chloride 0.9% (plus) 50 ML 100 MG IV (13:57)
[2023-07-21] MEDS: ceFAZolin 1,000 MG in sodium chloride 0.9% (plus) 50 ML 100 MG IV (14:49)
[2023-07-21] MEDS: EPINEPHrine 1 mg/mL INJ XX (15:30)
[2023-07-21] MEDS: ketorolac 30 mg/mL INJ XX (15:31)
[2023-07-21] MEDS: tranexamic acid 1,000 mg/10mL SDV 1000 MG XX (15:32)
[2023-07-21] MEDS: tranexamic acid 1,000 mg/10mL SDV 1000 MG IV (15:34)
[2023-07-21] MEDS: ROPivacaine 0.2% Premix 100 mL 200 MG INTRA-ARTI (15:35)
[2023-07-21] MEDS: vancomycin 1,000 MG SDV 2000 MG INTRA-ARTI (15:52)
--- NOTE | 2023-07-21 16:33 | P.BOP_ITS ---
Date of Procedure: 07/21/2023 Surgeon: Dejan Ramires DO Wrapper Rewinder(s): Cedric Ramires PA-C Procedure(s) performed: Right total knee arthroplasty?Jesus robotic assisted Findings of the procedure(s): Patient found to have severe tricompartmental right knee degenerative joint disease underwent procedure as planned without issues or complications. Estimated blood loss: 25 mL Specimen(s) removed: Tibia femur and patellar bone cuts removed Post-operative diagnosis: Right knee degenerative joint disease
--- NOTE | 2023-07-21 16:34 | PM.OP ---
Operative Report Date of procedure: July 21, 2023 Surgeon: Dejan Ramires DO Behavioral Therapy Coordinator: Cedric Ramires PA-C: PA was necessary for assistance in this case with leg positioning retraction and protection of neurovascular structures as well as assistance in implantation wound closure and dressing application. Procedure: Preoperative diagnosis: Right knee degenerative joint disease Post-op diagnosis: Same Procedure done: Right total knee arthroplasty, cemented?robotic assisted Jesus Implants: Jeff triathlon size 7 femur CR cemented?right Reliance triathlon size? 6 tibia universal baseplate cemented Reliance triathlon asymmetric patella size 35 mm Jeff triathlon polyethylene 9mm Surgeon: Dejan Ramires DO Estimated blood loss: 25 mL Tourniquet 67minutes IV fluids: 700 mL Urine output: 200mL Complications: None Condition: stable Disposition: floor Brief History: Patient is a 68-year-old male with with chronic?right knee degenerative joint disease.? Patient has been worked up in the outpatient setting in the orthopedic office at this point time through shared decision making given his zmdi-tf-ipwk arthritis as well as failed conservative treatment, and pt would like to proceed with a?right total knee arthroplasty.? Through shared decision making elected to proceed with surgical intervention for?right total knee arthroplasty.? We talked about continued conservative treatment and surgical intervention as far as the?risk benefits complications alternatives surgical and nonsurgical treatment options.? At this point time understanding patient?risks with surgery he agrees to proceed with surgical intervention.? Once again??risk with surgery include but are not limited to make it better make it worse blood clot, heart attack, stroke, on the table, infection, injury to nerves or vessels, persistent pain, arthrofibrosis, implant failure.? Understanding these?risks patient agrees to proceed with surgical intervention consent was obtained in the office.? All questions answered. Procedure: Patient was seen and evaluated in the preoperative holding area.? Consent was?reviewed and signed with patient with plan for?right total knee arthroplasty.? All questions answered.? Correct extremity marked.? Patient seen and evaluated by the anesthesia department and once cleared for surgery was taken back to the operative suite.? Patient was placed into a supine position on the OR table.? All bony prominences were well-padded.? Patient was appropriately secured to the bed.? Patient underwent anesthesia per the anesthesia department.? Patient?received spinal anesthesia and? Flowers catheter was placed.? A nonsterile tourniquet was applied to the?right thigh.? At this point in time a final timeout performed.? Patient?received appropriate preoperative antibiotics and TXA. Next the?right lower extremity was then prepped and draped in standard orthopedic fashion. Esmarch tourniquet was used exsanguinate the?right lower extremity.? Tourniquet was insufflated to 250 mmHg. A standard anterior incision was made over midline of the knee.? Sharp scalpel excision through skin and subcutaneous tissue full-thickness skin flaps were made.? Fascia was elevated off of the extensor?retinaculum was stable with medial parapatellar arthrotomy was then made.? The performed standard sequential?releases..? Immediately on entry into the joint patient was found to have severe eburnated bone and tricompartmental arthritic changes noted.? With significant osteophyte formation.? Next the the patella was then stuffed and the knee was then flexed.?? Miladys was placed superiorly around the anterior aspect of the femur this was freed of synovium and I subsequently then placed by 2 femur pins to establish my femur arrays for the CallAround?robot.? These were then placed bicortically and? femur array was then appropriately secured with appropriate visualization.? Next attention was turned towards the tibial?rays.? These were then drilled sequentially bicortically in parallel fashion and intraincisional.? I then placed my guide as well as my tibial array on in place.? This was appropriately secured and had excellent visualization with the Jesus?robot.? Next the tibial checkpoint as well as femur checkpoint were then placed.? At this point time I then subsequently established my head center as well as my medial lateral malleoli as well as my checkpoints.? Next utilizing standard Jesus technology I then mapped out the appropriate points and confirmation points around the femur as well as the tibia in standard fashion.? Once this was then done I then?removed all osteophytes in preparation for dynamic testing.? All osteophytes were?removed as well as I?removed the ACL and the PCL was excised due to its significant tearing and degeneration noted.? At this point time the knee was brought into full extension and we performed our standard evaluation of our gap balancing stressing his ligaments and extension as well as flexion appropriate adjustments were made to have appropriate gap balancing in both flexion and extension.? This plan for final counts.? We get a preoperative plan evaluating our implants which was a size 4 femur and a size 4 tibia.? Next we brought in the CallAround?robot and sequentially made our femur cuts.? All excess bony cuts were then?removed.? Finally we made our tibial cut.? Once this was done a standard PCL?retractor was then placed into this position I excised the medial and lateral meniscus.? The tibial cut was then subsequently?removed all excess bony debris was?removed.? I then utilized a lamina management trainee marketing and?remove the posterior osteophytes.? At this point time sized the tibia and confirmed this was a size 6.? I utilized our blunt probe to establish?rotation of tibial implant.? Once this was done I then placed my tibia size 6 trial in appropriate position and then subsequently placed tibial pins to hold this into place placed a size 9 mm poly as well as a size 7femur which was appropriately impacted in place knee was then subsequently brought into extension. Trials were then assessed, with the 9mm poly and this was stable with varus valgus stress in extension as well as had symmetrical translation when brought into flexion demonstrating symmetrical gaps. I had excellent balance gaps in flexion and extension with varus and valgus stresses.? At this point I was satisfied with these implants these were then verified and opened on the back table size 6 tibia, size7 femur,? size 9 mm polythickness.? We did confirm appropriate gap balancing and stresses as well as alignment utilizing? Jesus and were satisfied with this plan.? ?At this point time with my trials in place I then towel clip the patella everted this made appropriate measurements subsequently utilizing freehand technique performed by patellar?resurfacing this was confirmed to be appropriate?resection and subsequently sized to be a 35 mm asymmetric.? My drill peg guides were then clamped and appropriate position and appropriate position in the patella for appropriate tracking and parallel with the joint.? Pegs were drilled trial implant was placed and the knee was then subsequently?ranged and found to have excellent patellar tracking.? Femur pegs were then drilled.? Satisfied with our tibial placement?rotation I then utilized the keel punch and prepped the tibia.? At this point time all of our trial implants were?removed.? All checkpoints as well as guidepins and arrays were?removed and appropriate counts made.? The wound bed? was thoroughly irrigated and dried and prepped for cementation.? Cement was mixed on the back table.? Once cement was?ready this was then covered onto the tibia and the tibial baseplate was then impacted and all excess cement was?removed.? Next the polyethylene was then impacted into place on the tibial baseplate.? Next cement was placed onto the femur as well as under the femur implants and impacted in to place and all excess cement was extruded and?removed.? Knee was taken into full extension? to clear all excess cement was?removed.? Warm saline was placed over the joint.? I then towel clip patella and dried for cementation. cemented the patella into place.? This was all clamped and the cement was allowed to cure.? Thorough irrigation performed with pulse lavage.? I then placed my periarticular injection while the cement was curing.? Once cured the knee was taken through?range of motion and had excellent stability and gaps were balanced in flexion and extension.? Tourniquet was then deflated. hemostasis satisfactory with electrocautery.? Vancomycin powder placed in wound bed for infection prophylaxis. Next I then subsequently closed the capsule with Ethibond suture as well as a?running strata fix suture.? Knee was then taken through?range of motion 20 times.? Next the skin was then closed in layered fashion of?running stratifix sutures of deep and subcutenous tissue and skin.? ?closed in flexion and Prineo glue was then placed over the incision this allowed to cure.? Incision was covered with Silverlon, with ABDs soft?roll and Stiven wrap.? Patient was then awakened from anesthesia and taken to PACU in stable condition. Disposition: Patient taken to PACU in stable condition will be admitted to the floor for pain control PT/OT weight-bear as tolerated?right lower extremity dressing changes as needed, DVT prophylaxis. Pain control. Patient will?receive appropriate postoperative antibiotics. patient will be seen today by the internal medicine team for medical management.? Patient will follow up with the office in 2 weeks.? Patient understands agrees with current plan.? All questions answered.
--- NOTE | 2023-07-21 16:41 | XR_ITS ---
WS: [id number] Examination: XR knee RT 1-2V 10110 Reason for Exam: s/p R TKA Date: July 21, 2023 Comparison: June 10, 2023 Findings: Postop changes demonstrate a well-positioned and aligned total right knee prosthesis. I see no surgical complication. Impression: Well aligned total right knee prosthesis is identified.
--- NOTE | 2023-07-21 16:50 | PM.PACU ---
PACU note Narrative: Patient is a 68-year-old male just underwent a right total knee arthroplasty. Pt transferred to PACU in stable condition. Dressing is dry. pt is awake and alert. pt can wiggle toes and plantarflex and dorsiflex foot. pt able to perform straight leg raise, Femoral nerve intact. Distal pulses are palpable toes are warm and well-perfused. Cap refill is normal and under 2 seconds. Sensation to foot is intact. Pain is controlled. Exam: awake Disposition: admitted
--- NOTE | 2023-07-21 17:34 | P.CONIM_ITS ---
Providers/Reason For Consult 2 Consulting Physician/Specialty*: Hospitalist Reason for Consult*: medical managment Requesting Physician: Keyla Attending Physician: Dejan Ramires DO Primary Care Provider: HANNY Steven History of Present Illness History of Present Illness Armaan Camacho is a 68 year old male who is status post right total knee replacement today. He has a past medical history of hypertension hyper lipidemia and A-fib. He had a spinal today with minimal blood loss started prior asked for medical management if necessary. Review of Systems 2 Const: Denies: fever(s) or chills Eyes: Denies: change in vision ENMT: Denies: throat pain or nasal congestion Card: Denies: chest pain or palpitations Resp: Denies: dyspnea or productive cough GI: Denies: abdominal pain, nausea, vomiting or change in stool character : Denies: difficulty urinating or dysuria Musc: Denies: back pain or extremity pain Skin/Breast: Denies: rash or lesions Neuro: Denies: headache(s) or dizziness Psych: Denies: anxiety or depression Jovanny/Lymph: Denies: easy bruising or easy bleeding Medications/Allergies Home Medications Medication Instructions Recorded Confirmed Last Taken Type ascorbic acid (vitamin C) 1,000 mg 1 gm PO DAILY 07/05/19 07/18/23 07/19/23 History tablet aspirin 325 mg tablet 325 mg PO DAILY 07/05/19 07/18/23 07/16/23 History lemon grass 1 tab PO QPM 07/05/19 07/18/23 07/19/23 History zinc fctxyvo-cyeuzd-gzt 1 cap PO QPM 07/05/19 07/18/23 07/19/23 History andmzaxx-qwdljpc-edi afr 15 mg-2 mg-160 mg cap fexofenadine 180 mg tablet 180 mg PO QPM 10/19/21 07/18/23 07/20/23 History (Micheline Allergy) fluticasone propionate 50 2 spray intranasal QPM 10/19/21 07/18/23 07/20/23 History mcg/actuation nasal spray,suspension (Flonase Allergy Relief) metoprolol succinate 50 mg 50 mg PO DAILY #90 tabs 04/18/23 07/18/23 07/20/23 21:00 Rx tablet,extended release 24 hr rosuvastatin 40 mg tablet 40 mg PO DAILY #90 tabs 04/18/23 07/18/23 07/20/23 Rx Allergies Allergy/AdvReac Type Severity Reaction Status Date / Time No Known Allergies Allergy Verified 07/10/23 08:43 PFSH Acute 2 PFSH: Medical History Elevated PSA Surgical History S/P knee replacement left History of tonsillectomy and adenoidectomy [place] teeth extracted Family History Father , AT AGE 65 [place] No problems noted. Mother , AT AGE 79 COPD No problems noted. 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 He has no complaints he is alert and oriented to person place time and situation No acute distress Heart: Regular normal S1-S2 without murmurs clicks gallops or rubs Respiratory: Clear to auscultation anteriorly without wheezes rales or rhonchi Abdomen obese soft nontender nondistended positive bowel sounds Extremities no clubbing cyanosis or edema right knee with postoperative dressing. Urinary Catheter Management: Flowers: Cath Placed During This Visit: yes Urinary Catheter Date of Insertion: 07/21/23 Urinary Catheter Time of Insertion: 15:00 Data 07/21/23 12:44 07/21/23 12:40 A&P Assessment and plan (1) Hypertension: Continue home meds Qualifiers: Hypertension type: essential hypertension Qualified Code(s): I10 - Essential (primary) hypertension (2) Dyslipidemia: May hold meds today Plan Ortho plans on discharge tomorrow. Consult Attestations 2 Medical Necessity Statement: Per primary Coding Level of Care Code Acute Code for [facility] Fwd Diagnoses Essential hypertension I10 Hypertension type: essential hypertension Dyslipidemia E78.5
[2023-07-21] MEDS: calcium carb-vit d 600mg/400unit 1 Tablet 1 EACH PO (17:53)
[2023-07-21] MEDS: iron polysaccharide complex 150 mg Capsule PO (17:53)
[2023-07-21] MEDS: docusate sodium 100 mg Capsule PO (17:53)
[2023-07-21] MEDS: lactated ringers 1,000 ML 100 ML IV (17:53)
[2023-07-21] MEDS: mupirocin oint 22 gm 1 APPLIC NASAL (17:54)
[2023-07-21] MEDS: fluticasone nasal spray 16gm Btl 2 SPRAY INTRANASAL (17:54)
[2023-07-21] MEDS: chlorhexidine gluconate 0.12% Btl 473 mL 30 ML MUCOUS MEM (17:55)
[2023-07-21] MEDS: tranexamic acid 1,000 MG/100 ML PREMIX 600 MG IV (20:00)
[2023-07-21] MEDS: oxyCODONE 5 mg IR Tab/Cap PO (20:05)
[2023-07-21] MEDS: ceFAZolin 3,000 MG in sodium chloride 0.9% (plus) 50 ML 100 MG IV (22:58)
[2023-07-22] MEDS: acetaminophen 1,000 MG/100 ML PIGGYBACK 400 MG IV ×2 (00:56→08:01)
[2023-07-22 03:45] VITALS: BP 136/80; PULSE 70; RESP 17; TEMP 36.8; O2SAT 94
[2023-07-22] MEDS: lactated ringers 1,000 ML 100 ML IV (04:01)
[2023-07-22 05:03] LABS: Basophils % 0.2 %; Eosinophils % 0.2 %; Hematocrit 37.5 % (37-53); Lymphocytes # 0.5 10^3/uL (0.8-4.8); Lymphocytes % 4.9 %; Mean Corpuscular HGB Conc 33.6 g/dL (30-55); Mean Corpuscular Hemoglobin 29.2 pg (27-33); Mean Platelet Volume 10.2 fL (7.4-10.4); Neutrophils # 9.45 10^3/uL (1.8-7.7); Neutrophils % 85.3 %; Nucleated Red Blood Cells % 0 %; Platelet Count 196 10^3/cmm (157-399); Red Blood Count 4.31 10^6/uL (3.85-5.65); Red Cell Distribution Width 13.2 % (12.1-15.1); White Blood Count 11.06 10^3/uL (3.29-11.43)
[2023-07-22 05:20] LABS: Anion Gap 13.4 (5-19); Blood Urea Nitrogen 16 mg/dL (8-23); Calcium 8.8 mg/dL (8.5-10.5); Carbon Dioxide 24 mmol/L (22-29); Chloride 106 mmol/L (98-107); Creatinine Clr Calc Pharmacy 115.4399; Glomerular Filtration Rate 112.5 mL/min (90-130); Glucose 113 mg/dL (65-115); Osmolality Calculated 290 mOsm/kg (285-295); Potassium 4.4 mmol/L (3.5-5.1); Sodium 139 mmol/L (136-145)
[2023-07-22] MEDS: ceFAZolin 3,000 MG in sodium chloride 0.9% (plus) 50 ML 100 MG IV (06:00)
[2023-07-22 06:02] VITALS: RESP 16
[2023-07-22] MEDS: oxyCODONE 5 mg IR Tab/Cap PO (06:02)
[2023-07-22] MEDS: apixaban 5 mg Tablet 2.5 MG PO (07:58)
[2023-07-22] MEDS: calcium carb-vit d 600mg/400unit 1 Tablet 1 EACH PO (07:58)
[2023-07-22] MEDS: metoprolol succinate ER (24 HR) 50 mg Tablet PO (07:58)
[2023-07-22] MEDS: iron polysaccharide complex 150 mg Capsule PO (07:58)
[2023-07-22] MEDS: docusate sodium 100 mg Capsule PO (07:59)
[2023-07-22] MEDS: chlorhexidine gluconate 0.12% Btl 473 mL 30 ML MUCOUS MEM (07:59)
[2023-07-22] MEDS: mupirocin oint 22 gm 1 APPLIC NASAL (07:59)
[2023-07-22] MEDS: multivitamin therapeutic Tablet 1 TAB PO (07:59)
[2023-07-22 08:12] VITALS: BP 137/86; PULSE 69; RESP 20; TEMP 36.4; O2SAT 95
--- NOTE | 2023-07-22 09:54 | PC.CHAP ---
Pastoral Care Encounter/Spiritual Assessment Type of Contact [] Declined receiving supervisor visit [] Patient/Family/Request visit [] Outpatient visit [] Follow-up visit [] Physician referral [] Code/Alert [x] Routine visit [] Staff referral [] Actively dying [] Patient sleeping [] Family support [] [] Out of room [] Palliative care [] [] Receiving care in room [] Pre-surgical visit [] Trauma [] Long length of stay [] ICU visit [] Other: Relational/Emotional Strength [x] Patient feels connected with others/family/visitors/staff [] Distress [] Loneliness/isolation [] Abandonment Spirituality of Patient [x] Person of Annette [] Attends Bahai of their Annette [x] Believes in Prayer [] Reads Bible or Latter Day materials [] There are Spiritual issues to be addressed Switch Crew Supervisor Interventions [x] Prayer [] Active listening [] Non-anxious presence [x] Spiritual/emotional support [] Crisis/trauma care [] Spiritual counseling [] Bereavement support [] Provided bereavement packet [] Provided Bible/devotional materials [] Provided toy/stuffed animal, coloring book to patient or family member [] Provided Communion [] Anointing/[place] [] Salvation [x] Completed spiritual assessment [] Other: Impact on Illness or Injury [] Angry [] Fearful [] Anxious [] Often cries [] Exhaustion [] Unable to work [] Unable to attend buddhist [] Unable to walk/stand [] Unable to read [] Unable to drive [] Unable to eat/drink [] Unable to sleep [] Unable to be with family [] Patient intubated [] Other: Summary Time spent with patient 5 min
[2023-07-22] MEDS: TRAMadol 50 mg Tablet PO (11:24)
[2023-07-22 12:12] VITALS: BP 150/76; PULSE 71; RESP 19; TEMP 36.3; O2SAT 92
--- NOTE | 2023-07-22 12:24 | PM.DCS ---
Discharge Providers Date of Admission: 07/21/23 16:15 Date of Discharge: July 22, 2023 Attending Provider at Admission: Dejan Ramires DO Attending Provider at Discharge: Dejan Ramires DO Consults: Hospitalist?Dr. Bruno Primary Care Provider: HANNY Steven Diagnoses at Discharge Discharge Diagnosis (1) Hypertension: Status: Acute Qualifiers: Hypertension type: essential hypertension Qualified Code(s): I10 - Essential (primary) hypertension (2) Dyslipidemia: Status: Acute Reason for Visit Reason for Visit: M17.11 Brief History: Status post right total knee arthroplasty Hospital Course Hospital Course Patient presented to the preoperative holding area with plan for right total knee arthroplasty after patient has been worked up in the outpatient setting for failed conservative treatment of right knee degenerative joint disease. Once cleared by anesthesia for surgery patient subsequently was taken back to the operative suite underwent anesthesia per anesthesia department and then subsequently underwent a right total knee arthroplasty. Procedure was performed without any complications patient was taken to PACU in stable condition patient recovered well in PACU and then was admitted to the floor postoperatively internal medicine was consulted and on board for medical management and assistance with care. Patient received appropriate PT/OT, postoperative antibiotics, postoperative TXA, pain control, postoperative DVT prophylaxis. Elevation and ice. Patient encouraged for knee range of motion allowed weightbearing as tolerated to the operative lower extremity. Dressing was changed as needed, labs were monitored daily. Patient recovered well postoperatively and worked well and progressed well with therapy. It was determined on postoperative day 1 the patient was stable for discharge from an orthopedic standpoint and medicine. Patient was comfortable with discharge and plan was discharged home. Patient received appropriate discharge instructions as well as pain medication and DVT prophylaxis postoperatively. Given appropriate instructions for dressing management. Patient will follow-up with Dr. Ramires/orthopedics in the office in 2 weeks. All questions answered. Understand if there is any issues questions or concerns and contact the office. Physical Exam Narrative: Patient seen and examined. Dressings on in place is clean dry and intact patient able to wiggle toes plantarflex and dorsiflex ankle toes warm well-perfused dressings not taken down. Patient's compartments are soft and compressible. Urinary Catheter Management: Flowers: Cath Placed During This Visit: yes, but has since been removed by the nurse Reason for Continuing Indwelling Catheter: Decision to DC Catheter Urinary Catheter Date of Insertion: 07/21/23 Urinary Catheter Time of Insertion: 15:00 Date Urinary Catheter Removed: 07/22/23 Time Urinary Catheter Discontinued: 06:12 Discharge Data Studies Completed and Pending Completed Studies During Hospitalization Category Date Time Status XR knee RT 1-2V 66331 Routine Exams 07/21/23 16:41 Completed Pending at discharge Category Date Time Status Basic Metabolic Panel AM LABS Lab 07/23/23 04:00 Ordered Basic Metabolic Panel AM LABS Lab 07/24/23 04:00 Ordered Complete Blood Count w/Auto AM LABS Lab 07/23/23 04:00 Ordered Complete Blood Count w/Auto AM LABS Lab 07/24/23 04:00 Ordered Laboratory Results WBC 11.06 10^3/uL (3.29-11.43) 07/22/23 04:47 RBC 4.31 10^6/uL (3.85-5.65) 07/22/23 04:47 Hgb 12.60 g/dL (11.27-16.99) 07/22/23 04:47 Hct 37.5 % (37-53) 07/22/23 04:47 MCV 87.0 fl (82-101) 07/22/23 04:47 MCH 29.2 pg (27-33) 07/22/23 04:47 MCHC 33.6 g/dL (30-55) 07/22/23 04:47 RDW 13.2 % (12.1-15.1) 07/22/23 04:47 Plt Count 196 10^3/cmm (157-399) 07/22/23 04:47 MPV 10.2 fL (7.4-10.4) 07/22/23 04:47 Neut % (Auto) 85.3 % 07/22/23 04:47 Lymph % (Auto) 4.9 % 07/22/23 04:47 [place] % (Auto) 9.0 % 07/22/23 04:47 Eos % (Auto) 0.2 % 07/22/23 04:47 Baso % (Auto) 0.2 % 07/22/23 04:47 Neut # (Auto) 9.45 10^3/uL (1.8-7.7) H 07/22/23 04:47 Lymph # (Auto) 0.5 10^3/uL (0.8-4.8) L 07/22/23 04:47 [place] # (Auto) 1.0 10^3/uL (0.2-0.9) H 07/22/23 04:47 Eos # (Auto) 0.0 10^3/uL (0.0-0.8) 07/22/23 04:47 Baso # (Auto) 0.0 10^3/uL (0.0-0.1) 07/22/23 04:47 Nucleated RBC % (auto) 0 % 07/22/23 04:47 Nucleated RBCs # 0.0 /100WBC 07/22/23 04:47 Sodium 139 mmol/L (136-145) 07/22/23 04:47 Potassium 4.4 mmol/L (3.5-5.1) 07/22/23 04:47 Chloride 106 mmol/L (98-107) 07/22/23 04:47 Carbon Dioxide 24 mmol/L (22-29) 07/22/23 04:47 Anion Gap 13.4 (5-19) 07/22/23 04:47 BUN 16 mg/dL (8-23) 07/22/23 04:47 Creatinine 0.7 mg/dL (0.7-1.2) 07/22/23 04:47 GFR Calculation 112.5 mL/min (90-130) 07/22/23 04:47 Glucose 113 mg/dL (65-115) 07/22/23 04:47 Calculated Osmolality 290 mOsm/kg (285-295) 07/22/23 04:47 Calcium 8.8 mg/dL (8.5-10.5) 07/22/23 04:47 Blood Type O Positive 07/21/23 12:40 Rho(D) Type Rh positive 07/21/23 12:40 Antibody Screen Negative 07/21/23 12:40 Vitals Last Vital Signs Temp 97.3 F L 07/22/23 12:12 Pulse 71 07/22/23 12:12 Resp 19 H 07/22/23 12:12 BP 150/76 07/22/23 12:12 Pulse Ox 92 07/22/23 12:12 O2 Del Method Room Air 07/22/23 12:12 O2 Flow Rate 6 07/21/23 16:45 Discharge Plan Discharge Patient Disposition: Home Condition: Stable Prescriptions: New oxycodone 5 mg tablet 5 mg PO Q6H PRN (Reason: pain postop) 7 Days Qty: 28 0RF Eliquis 2.5 mg tablet 2.5 mg PO BID 14 Days Qty: 28 0RF ondansetron 4 mg tablet,disintegrating 4 mg PO Q8H PRN (Reason: nausea and vomiting) 3 Days Qty: 9 0RF Continued lemon grass 1 tab PO QPM zinc [id number] palm-gnsg 15-2-160 mg capsule 1 cap PO QPM ascorbic acid (vitamin C) 1,000 mg tablet 1 gm PO DAILY rosuvastatin 40 mg tablet 40 mg PO DAILY Qty: 90 1RF metoprolol succinate 50 mg tablet extended release 24 hr 50 mg PO DAILY Qty: 90 1RF fexofenadine [Micheline Allergy] 180 mg tablet 180 mg PO QPM fluticasone propionate [Flonase Allergy Relief] 50 mcg/actuation spray,suspension 2 spray INTRANASAL QPM Rx Instructions: administer into each nostril Held aspirin 325 mg tablet 325 mg PO DAILY Hold Instructions: Resume on 08/04/23. Discharge Orders: Discharge Order (Routine); Ordered 07/22/23 Ordered By: Dejan Ramires Referrals: Dejan Ramires DO [Physician] - 08/12/23 8:30 am Discharge Diet: Advance as tolerated Discharge Activity: Limit activity as instructed Patient Instructions: Cephalexin (By mouth) (Bio-Cef, Keflex), Ondansetron (By mouth), Total Knee Replacement (GEN), Joint Replacement Stoplight, Opioid Safety Activity Restrictions/Additional Instructions: Orthopedic discharge instructions: Patient should keep dressings clean dry and intact Okay to shower over dressings if they do become wet these should be removed and new dressings applied Keep incisions clean dry and intact, leave Silverlon bandage dressings on in place for 7 days after that may rinse incisions with warm soapy water pat dry and redress with a dry dressing Weight-bear as tolerated to operative lower extremity Anterior hip precautions as instructed by physical therapy Ice as needed for pain and swelling Take pain medication as prescribed Take antinausea medication as needed Supplement with Citracal vitamin D for bone health and healing Take Colace as needed for constipation Take blood thinner as prescribed (Eliquis) Follow-up in the orthopedic office in 2 weeks Contact the office for any questions or concerns Discharge Attestations Time Spent in Discharge Care*: less than 30 min Quality Metrics Clinical Quality Measures [ No reported AMI, CVA or VTE this stay] Coding Level of Care Code Acute Code for [facility] Fwd Diagnoses Essential hypertension I10 Hypertension type: essential hypertension Dyslipidemia E78.5
--- NOTE | 2023-07-22 14:37 | PM.PN ---
Subjective Subjective: No chest pain, shortness of breath headache lightheadedness or dizziness. Vitals/I&O/Wt Last Vital Signs Temp 97.3 F L 07/22/23 12:12 Pulse 71 07/22/23 12:12 Resp 19 H 07/22/23 12:12 BP 150/76 07/22/23 12:12 Pulse Ox 92 07/22/23 12:12 O2 Del Method Room Air 07/22/23 12:12 O2 Flow Rate 6 07/21/23 16:45 07/21/23 07/22/23 07/22/23 22:59 06:59 14:59 Intake Total 590 / 1190 1200 / 2390 1220 / 1220 Output Total 225 / 225 1125 / 1350 Balance 365 / 965 75 / 1040 1220 / 1220 Weight last 48 hrs Weight 104.417 kg Weight 135.624 kg Weight 135.624 kg Physical Exam Narrative: No acute distress Heart: Regular normal S1-S2 without murmurs clicks gallops or rubs Respiratory: Clear to auscultation anteriorly without wheezes rales or rhonchi Abdomen obese soft nontender nondistended positive bowel sounds Extremities no clubbing cyanosis or edema right knee with postoperative dressing. Urinary Catheter Management: Flowers: Cath Placed During This Visit: yes, but has since been removed by the nurse Reason for Continuing Indwelling Catheter: Decision to DC Catheter Urinary Catheter Date of Insertion: 07/21/23 Urinary Catheter Time of Insertion: 15:00 Date Urinary Catheter Removed: 07/22/23 Time Urinary Catheter Discontinued: 06:12 Data 07/22/23 04:47 07/22/23 04:47 A&P Assessment and plan (1) Hypertension: Continue home meds Qualifiers: Hypertension type: essential hypertension Qualified Code(s): I10 - Essential (primary) hypertension (2) Dyslipidemia: May hold meds today Plan Okay to discharge per medical standpoint Attestations Medical Necessity Statement*: Patient being discharged Coding Level of Care Code Acute Code for [facility] Fwd Diagnoses Essential hypertension I10 Hypertension type: essential hypertension Dyslipidemia E78.5
[2023-07-22 15:03] VITALS: BP 150/76; PULSE 71; RESP 19; TEMP 36.3; O2SAT 92
== END 2023-07-22 15:05 | disposition home health service (06) ==
LOC: MEDSURG 16:16
PROVIDERS: Physician Assistant; Admitting Provider Student in an Organized Health Care Education/Training Program; PCP Nurse Practitioner Family; Visit Provider Student in an Organized Health Care Education/Training Program
PROC: 8E0Y0CZ Robotic Assisted Procedure of Lower Extremity, Open Approach (ICD-10-PCS; CPT 27447; principal; 2023-07-21 13:40)
DX: M17.11 Unilateral primary osteoarthritis, right knee (principal); I10 Essential (primary) hypertension; E78.5 Hyperlipidemia, unspecified; E66.01 Morbid (severe) obesity due to excess calories; Z68.29 Body mass index [BMI] 29.0-29.9, adult; Z79.82 Long term (current) use of aspirin
CPT/HCPCS: 20985; 27447; 36415; 51702; 73560; 80048; 85025; 86850; 86900; 97110; 97116; 97161; 97165; 97530; A4216; C1776; G0378; J0131; J0171; J0330; J0690; J1100; J1885; J2704; J2795; J3010; J3370; J7120

== ENCOUNTER → 2023-08-12 08:23 | Outpatient (BNVA) | payer MEDICARE, OTHER, SELFPAY | PROVIDERS: PCP Nurse Practitioner Family; Visit Provider Student in an Organized Health Care Education/Training Program | DX: Z96.651 Presence of right artificial knee joint (principal) | CPT/HCPCS: 73560; 73565; 99024 ==

== ENCOUNTER 2023-08-21 06:00 | Outpatient (RCR) | payer MEDICARE, OTHER, SELFPAY | END 2023-09-19 23:59 | disposition home or self-care (01) | LOC: APT 06:00 | PROVIDERS: Visit Provider Student in an Organized Health Care Education/Training Program | DX: Z47.1 Aftercare following joint replacement surgery (principal); Z96.651 Presence of right artificial knee joint | CPT/HCPCS: 97110; 97140; 97161 ==

== ENCOUNTER 2023-09-20 06:00 | Outpatient (RCR) | payer MEDICARE, OTHER, SELFPAY | END 2023-10-19 23:59 | disposition home or self-care (01) | LOC: APT 06:00 | PROVIDERS: PCP Nurse Practitioner Family; Visit Provider Student in an Organized Health Care Education/Training Program | DX: Z47.1 Aftercare following joint replacement surgery (principal); Z96.651 Presence of right artificial knee joint | CPT/HCPCS: 97110; 97140 ==

== ENCOUNTER → 2023-09-25 08:39 | Outpatient (BNVA) | payer MEDICARE, OTHER, SELFPAY | PROVIDERS: PCP Nurse Practitioner Family; Visit Provider Physician Assistant | DX: Z96.652 Presence of left artificial knee joint (principal) | CPT/HCPCS: 73560; 73565; 99024 ==

== ENCOUNTER 2023-10-20 06:00 | Outpatient (RCR) | payer MEDICARE, OTHER, SELFPAY | END 2023-11-19 23:59 | disposition home or self-care (01) | LOC: APT 06:00 | PROVIDERS: PCP Nurse Practitioner Family; Visit Provider Student in an Organized Health Care Education/Training Program | DX: Z47.1 Aftercare following joint replacement surgery (principal); Z96.651 Presence of right artificial knee joint | CPT/HCPCS: 97110 ==

== ENCOUNTER → 2024-01-27 08:38 | Outpatient (BNVA) | payer MEDICARE, OTHER, SELFPAY | PROVIDERS: PCP Nurse Practitioner Family; Visit Provider Student in an Organized Health Care Education/Training Program | DX: Z96.651 Presence of right artificial knee joint (principal) | CPT/HCPCS: 73560; 73565; 99213 ==

== ENCOUNTER → 2024-02-20 13:14 | Outpatient (BNVA) | payer MEDICARE, OTHER, SELFPAY | PROVIDERS: PCP Nurse Practitioner Family; Visit Provider Nurse Practitioner Family | DX: I10 Essential (primary) hypertension (principal); Z79.899 Other long term (current) drug therapy; R97.20 Elevated prostate specific antigen [PSA] | CPT/HCPCS: 80053; 80061; 82306; 84153; 84443; 85025 ==

== ENCOUNTER → 2024-07-27 08:16 | Outpatient (BNVA) | payer MEDICARE, SELFPAY | PROVIDERS: PCP Nurse Practitioner Family; Visit Provider Student in an Organized Health Care Education/Training Program | DX: Z96.653 Presence of artificial knee joint, bilateral (principal) | CPT/HCPCS: 73560; 73565; 99213 ==

== ENCOUNTER → 2024-08-05 09:07 | Outpatient (BNVA) | payer MEDICARE, SELFPAY | PROVIDERS: PCP Nurse Practitioner Family; Visit Provider Nurse Practitioner Family | DX: I10 Essential (primary) hypertension (principal); R73.9 Hyperglycemia, unspecified; R97.20 Elevated prostate specific antigen [PSA]; E55.9 Vitamin D deficiency, unspecified | CPT/HCPCS: 80053; 80061; 82306; 82607; 83036; 84153; 84443; 85025 ==

== ENCOUNTER → 2025-02-15 10:13 | Outpatient (BNVA) | payer MEDICARE, SELFPAY | PROVIDERS: PCP Nurse Practitioner Family; Visit Provider Nurse Practitioner Family | DX: E55.9 Vitamin D deficiency, unspecified (principal); I10 Essential (primary) hypertension; R73.9 Hyperglycemia, unspecified; E78.5 Hyperlipidemia, unspecified; R97.20 Elevated prostate specific antigen [PSA] | CPT/HCPCS: 80053; 80061; 82306; 83036; 84153; 84443; 85025 ==